=== PATIENT | male | born 1960 | race Caucasian/White ===

== ENCOUNTER → 2021-11-26 | Day surgery (SDC) | payer OTHER, BC ==
[~2021-11-26] VITALS: Ht 188 cm; Wt 82.4 kg
[~2021-11-26] MED LIST: CELEXA 10 MG TA10 M1 PO; ESOMEPRAZOLE MA40 MG PO; LINZESS145 MCG PO; NEURONTIN 300M300 M2 PO; PROTONIX40 M2 PO; SILODOSIN8 MG PO; SUTAB 1.479-1.479 GM PO; TADALAFIL5 M1 PO; TRAMADOL100 MG PO; UBRELVY50 MG PO; VALACYCLOVIR1000 MG PO
[2021-11-26 10:03] VITALS: BP 110/69
--- NOTE | 2021-11-27 13:08 | PATH ---
[facility] [place] [address] PATHOLOGY RPT PROCEDURE Name: KULDIP BANGURA Room #: REG [facility]..#: [id number] Admission: 11/26/21 Date of : 58 Discharge: Report #: [id number] Path Case #: [id number] [facility] Accession Number: [id number] . 01 Material submitted: . canthus - RIGHT MEDIAL CANTHUS AND LOWER LID LESION-FS. Modifiers: right, medial, LOWER LID . 01 Clinical history: . OTHER BENIGN NEOPLASM OF SKIN OF RIGHT UPPER EYELID, INCLUDING CANTHUS, OTHER BENIGN NEOPLASM OF SKIN OF RIGHT LOWER EYELID, INCLUDING CANTHUS EXCISION LESION EYE BASAL CELL CARCINOMA -MARGINS ARE NEGATIVE . 02 Frozen section diagnosis: . FROZEN SECTION DIAGNOSIS (Dr. Eden Jacobs) . Right medial canthus and lower lid lesion: - Basal cell carcinoma. - Margins are negative. . The report was conveyed to Dr. Jolley by Dr. Jacosb at [facility] on 11/26/2021 at 12:27 p.m., and a written report is placed in the patient's chart. . . FROZEN SECTION GROSS DESCRIPTION The specimen is received fresh from the operating room labeled with the patient's name and right medial canthus and lower lid lesion. The specimen consists of an oriented ellipse of skin which measures 1.1 x 0.6 x 0.5 cm. The specimen is oriented as follows: Superior-12:00, medial-3:00, inferior-6:00 and lateral-9:00. The specimen is inked as follows: 12-6:00 black, 6-9:00 blue and 9-12:00 red, and serially sectioned and rendered for frozen section diagnosis in FSA1 and subsequently submitted in block A1 in formalin. (ANK:mayte; 11/26/2021) . Frozen section performed at [facility], [address] [place] [address] , [place] [address]. LUISK/QTP . 02 Diagnosis: Right medial canthus and lower lid lesion, excision: - BASAL CELL CARCINOMA. - All peripheral and deep margins are negative for malignancy. . [address] [address] PATHOLOGY RPT PROCEDURE Name: KULDIP BANGURA Room #: REG [facility] M.R.#: [id number] Admission: 11/26/21 Date of : 58 Discharge: Report #: [id number] Path Case #: [id number] (ANK:john; 11/27/2021) M 11/27/2021 1031 Local . 02 Electronically signed: . Eden Jacobs MD, Pathologist NPI- [id number] . 01 Gross description: . SEE FROZEN SECTION FOR GROSS DESCRIPTION . The specimen is received labeled "Kuldip Kourtney, F.S. right medial canthus and lower lid lesion". The frozen section remnant is entirely submitted in cassette A1. (JGG; 11/26/2021) JGG/JGG 11/27/2021 1029 Local . 02 Pathologist provided ICD-10: C44.1122 . 02 CPT . 258615, 240570 Specimen Comment: A courtesy copy of this report has been sent to [phone] Specimen Comment: [phone] Specimen Comment: Report sent to / DR BRODERICK Performed at: [address], [place] [id number] MD Juliocesar Aguillon MD Phone: [phone] Performed at: [address] [id number] MD Eden Jacobs MD Phone: [phone]
--- NOTE | 2021-11-30 06:12 | O ---
[facility] [place] [address] OPERATIVE REPORT Name: HEBERT BANGURA Room #: REG [facility].#: [id number] Admission: 11/26/21 Attend Phys: Nimesh Jolley MD Discharge: Date of : 58 Report #: [id number] THIS REPORT FOR: cc: Myke Pierre,Myke Aden,Nimesh Gastelum MD ~ cc: Myke Pierre DO DATE OF SERVICE: 11/26/2021 PREOPERATIVE DIAGNOSIS: Tumor of right medial canthus, upper lid and lower lid. POSTOPERATIVE DIAGNOSES: Tumor of right medial canthus, upper lid and lower lid. Basal cell carcinoma. PROCEDURES PERFORMED: Excision of tumor of right medial canthus, upper lid and lower lid with frozen section control of margins and myocutaneous flap repair of defect. SURGEON: Nimesh Jolley MD CLEARANCE REP: None. ANESTHESIA: MAC. COMPLICATIONS: None. INDICATIONS FOR SURGERY: This pleasant 60-year-old gentleman has a pearly nodular ulcerative mass in his right medial canthus that extends on to his upper lid and his lower lid. The lesion appears to most likely be a basal cell carcinoma. He presents today for excision of this lesion with frozen sections and subsequent reconstruction of the ensuing defect. Informed consent was obtained to include but not limited to the potential risk for loss of vision, bleeding, infection, failure to improve the problem, the potential need for further surgery or treatment. DESCRIPTION OF PROCEDURE: The patient was taken to the operating room where 2% Xylocaine with epinephrine mixed with equal parts 0.75% Marcaine with Wydase was administered transcutaneously to the right medial canthus, the right lower lid, the right upper lid and glabella. The patient was subsequently prepped and draped in the usual sterile fashion. A fine tip skin marking pen was then utilized to outline the lesion including a 2-3 mm margin of normal-appearing skin. The incisions were then made with a Colby scissor and the lesion excised from deeper structures sharply. It was then oriented on a drawing for the waiting pathologist as hemostasis was achieved in the field. The pathologist snap froze that specimen and found that the lesion was indeed a [address] [address] OPERATIVE REPORT Name: HEBERT BANGURA Rafy Room #: REG [facility].#: [id number] Admission: 11/26/21 Attend Phys: Nimesh Jolley MD Discharge: Date of : 58 Report #: [id number] basal cell carcinoma and our margins appeared to be clear. The defect was inspected and reconstructive options considered. A myocutaneous flap was subsequently developed from superolaterally to be rotated inferomedially. The undermining was undertaken and the relaxing incision made. Hemostasis was then re-achieved. The flap was then advanced and closed with multiple interrupted 6-0 plain gut sutures. The wounds were then cleaned and dressed with erythromycin ophthalmic ointment and the patient subsequently transported to the recovery area having tolerated the procedure well with no anesthetic or operative complications being noted. <ELECTRONICALLY SIGNED> By: Nimesh Jolley MD 11/30/21 0612 1140 1215 Nimesh Jolley MD /nt
== END | disposition home or self-care (01) ==
LOC: OR 07:44
PROVIDERS: ATTEND Ophthalmology
DX: C44.1122 Basal cell carcinoma of skin of right lower eyelid, including canthus (principal); I48.91 Unspecified atrial fibrillation; G47.30 Sleep apnea, unspecified; K21.9 Gastro-esophageal reflux disease without esophagitis; Z98.890 Other specified postprocedural states; Z79.899 Other long term (current) drug therapy; Z85.828 Personal history of other malignant neoplasm of skin; Z95.0 Presence of cardiac pacemaker; Z79.01 Long term (current) use of anticoagulants
CPT/HCPCS: 50101; 50386; 50398; 51636; 56531; 62110; 62850; 70005